=== PATIENT | male | born 1975 | race Caucasian/White ===

== ENCOUNTER 2024-12-12 21:03 | Emergency (ER) | payer SELFPAY ==
[~2024-12-12] VITALS: Ht 182.9 cm; Wt 90.9 kg
[~2024-12-12 21:03] MED LIST: IBUP-1984 PO; SYN0.0125T PO
--- NOTE | 2024-12-12 21:23 | ELECTROCARDIOGRAPH REPORT ---
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 Rocio Noriega Measurements Intervals [place] Rate: 80 P: 66 [place]: 177 QRS: 45 QRSD: 97 T: 38 QT: 397 QTc: 458 Interpretive Statements Sinus rhythm Electronically Signed On 12-12-2024 23:33:[address] Rocio Noriega Please click the below link to view image of tracing.
[2024-12-12 21:45] LABS: MEAN PLATELET VOLUME 6.2 FL (7.4-10.4); RED CELL DISTRIBUTION WIDTH 13.8 % (11.5-14.5)
--- NOTE | 2024-12-12 21:50 | RADIOLOGY REPORT ---
CHEST RADIOGRAPH Indication: CP Technique: Single frontal view of the chest was obtained Comparison: None FINDINGS: Lines and Tubes: None Lungs: No focal consolidation. Pleura: No effusion or pneumothorax. Cardiomediastinal contours: Normal size. Small density overlying the right inferior heart. Bones: No acute osseous abnormality. IMPRESSION: 1. No acute cardiopulmonary abnormality.
[2024-12-12 22:05] LABS: CREATININE 0.97 MG/DL (0.60-1.10); PRO BRAIN NATRIURETIC PEPTIDE < 30 PG/ML (0-125); TOTAL CARBON DIOXIDE 22.6 MMOL/L (24-32); eCRCL 103 ML/MIN; eGFR 83 ML/MIN
--- NOTE | 2024-12-12 22:13 | Physician Documentation ---
History of Present Illness ~ Chief Complaint: Shortness of Breath Stated Complaint: SOB Time Seen by MD: 21:29 OK to notify your PCP?: Yes Primary Medical Doctor: Emigdio Source: patient, RN/, RN notes reviewed, old records Mode of Arrival: POV Exam Limitations: no limitations HPI 49 year old male with history of asthma and hashimotos seen in bed 01 presents to the emergency department for complaints of asthma. 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 He states he took an allergy treatment and found out he was allergic to trees and grass and is in the process of finding a new job. He states he has been treating his asthma with Zyrtec, Netie pot treatments and inhalers. He states that tonight while walking out of a movie he felt a sudden asthma exacerbation while waking to his car from a movie, he used his inhaler to no avail and states he felt like he was going to . He made it to his sisters house where he took a nebulizer treatment and decided to come in today. Of note he also complains of an infection to an upper tooth. Medication Reconciliation Allergies: Coded Allergies: No Known Allergies (Unverified , 10/12/12) Scheduled Amox Tr/Potassium Clavulanate (Augmentin 875-125 Tablet), 1 TAB PO Q12H Levothyroxine Sodium* (Synthroid*), 137 MCG PO DAILY, (Reported) Prednisone* (Prednisone*), 2 TAB PO DAILY Scheduled PRN Ibuprofen* (Motrin*), 1-2 TAB PO Q8H PRN Past Medical History Past Medical History: Asthma, Thyroid (unspecified) Past Surgical History: no surgical history Alcohol Use: Rarely Drug Use: none Review of Systems All Other Systems at this time: Reviewed and Negative ROS As stated above in the HPI, otherwise all systems are reviewed and negative. Physical Exam Vital Signs: RN Vital Signs have been reviewed: Yes, Temperature: 97.7, Source: Temporal, Heart Rate: 82, Respiratory Rate: 20, BP: 119/83, Pulse Oximetry: 94, Weight: 90.900 Oxygen Flow Rate: 0 Pulse Oximetry Reflects: adequate oxygenation Physical Exam General: The patient is well developed, well nourished, nontoxic appearing and is in no acute distress. Skin: [place], warm and dry with no rashes. HEENT: Top left pre molar evie with soft tissue swelling to left upper cheek. Head was normocephalic and atraumatic. Eyes - pupils equal, round, reactive to light and accommodation. Extraocular movements were intact. Conjunctivae were nonicteric. Ears - bilateral tympanic membranes were normal. The mouth and oropharynx were clear with moist mucous membranes. There were no pharyngeal exudates or erythema. Neck: Supple and nontender. There was no jugular venous distention, lymphadenopathy, thyromegaly or masses. Chest: Short and shallow breath sounds with expiatory wheezing. No accessory muscle use. No dullness to percussion. Heart: Rate regular and rhythmic. S1, S2. No murmurs. Palpation of the chest wall was normal. No rubs or thrills. Abdomen: Soft, nontender and nondistended. Positive bowel sounds. No guarding or rebound. No hepatosplenomegaly or palpable masses. Extremities: No cyanosis, clubbing or edema. The patient moves all extremities. Pulses were equal and symmetric. Neurologic: Cranial nerves II-XII were intact. Sensation was intact to light touch throughout. Motor strength was 5/5 in all four extremities. Deep tendon reflexes were intact in both upper and lower extremities. Psychologic: The patient was oriented to person, place and time. The patient demonstrated appropriate judgement and insight. Progress Results/Orders Results/Orders Orders - OSMANY NORIEGA MD Chest,Single View (12/12/24 21:21) Monitor (12/12/24 21:21) Saline Lock (12/12/24 21:21) Oxygen (12/12/24 21:21) Electrocardiogram (12/12/24 21:21) Heliox Svn Treatment (12/12/24 ) Svn Treatment (12/12/24 23:00) Peak Flow (12/12/24 23:10) Svn Treatment (12/12/24 23:10) Completed Orders - OSMANY NORIEGA MD Chest,Single View (12/12/24 21:21) Cbc/Diff (12/12/24 21:21) BMP (12/12/24 21:21) PBNP (12/12/24 21:21) Electrocardiogram (12/12/24 21:21) Hs Troponin I W Calculations (12/12/24 21:21) Methylprednisolone Sod Succ (Solumedrol (12/12/24 22:30) Ipratropium/Albuterol Nebule (Ipratrop/A (12/12/24 22:30) Amox Tr/Potassium Clavulanate (Augmentin (12/12/24 23:00) Ipratropium/Albuterol Nebule (Ipratrop/A (12/12/24 23:00) Albuterol 2.5mg/3ml Nebule (Proventil 2. (12/12/24 23:10) Medications Received in ER Medications (Trade) Dose Ordered Sig/Guicho Route PRN Reason Start Time Stop Time Status Last Admin Dose Admin (SoluMEDROL 125mg inj) 125 mg ONCE ONCE IV 12/12/24 22:30 12/12/24 22:31 DC 12/12/24 22:40 125 MG (ipratrop/ albuterol 0.5-3(2.5) MG/3ml nebule) 3 ml ONCE ONCE NEB 12/12/24 22:30 12/12/24 22:31 DC 12/12/24 22:30 3 ML (Augmentin 875-125mg tablet) 1 tab ONCE ONCE PO 12/12/24 23:00 12/12/24 23:01 DC 12/12/24 23:18 1 TAB (Proventil 2.5 MG/3ML nebule) 2.5 mg ONCE ONCE NEB 12/12/24 23:10 12/12/24 23:13 DC 12/12/24 23:42 2.5 MG Vital Signs 12/12/24 12/12/24 12/12/24 12/12/24 21:09 21:41 21:46 22:54 Temp 97.7 Pulse 82 82 70 Resp 20 20 18 B/P (MAP) 137/84 119/83 (95) Pulse Ox 94 94 97 O2 Delivery Room Air* O2 Flow Rate 0 0 8 FiO2 N/A 12/12/24 12/12/24 23:01 23:43 Temp 98.2 Pulse 72 72 Resp 18 20 B/P (MAP) 121/80 Pulse Ox 95 94 O2 Flow Rate 0 FiO2 N/A Laboratory Tests Test 12/12/24 21:37 White Blood Count 8.5 Red Blood Count 4.88 Hemoglobin 15.4 Hematocrit 43.7 Mean Corpuscular Volume 89.7 Mean Corpuscular Hemoglobin 31.6 H Mean Corpuscular Hemoglobin Concent 35.2 Red Cell Distribution Width 13.8 Platelet Count 288 Mean Platelet Volume 6.2 L Neutrophils (%) (Auto) 49.3 Lymphocytes (%) (Auto) 26.5 Monocytes (%) (Auto) 7.0 Eosinophils (%) (Auto) 16.8 H Basophils (%) (Auto) 0.4 Neutrophils # (Auto) 4.2 Lymphocytes # (Auto) 2.2 Monocytes # (Auto) 0.6 Eosinophils # (Auto) 1.4 H Basophils # (Auto) 0.0 CBC Comment Sodium Level 138 Potassium Level 3.5 Chloride Level 105 Carbon Dioxide Level 22.6 L Anion Gap 10 Blood Urea Nitrogen 27 H Creatinine 0.97 Estimated GFR/1.73 m2 83 BUN/Creatinine Ratio 27.8 H Glucose Level 108 H Calcium Level 9.0 Troponin I High Sensitivity 5 Pro-B-Type Natriuretic Peptide < 30 Albumin 3.9 Chemistry Comments Re-Evaluation Re-evaluation : Bronchodilator Tx Response: mild relief, moderate relief Re-Evaluation: Improved Progress Patient was seen and examined. Patient was given reassurance. Patient was having difficulty breathing. Patient has been having recurrent episodes of asthma exacerbation. 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 Patient received Heliox treatments x2 steroids. At time of discharge he was given antibiotics for his dental pain as well as steroids. Patient received a spacer as well as a peak flow monitor so he can evaluate his tidal volume. Laboratory work was reassuring. CBC was within normal limits without leukocytosis or left shift. Patient's chemistry showed some slight acidosis with a CO2 of 22.6. Patient's glucose slightly elevated 108 troponin negative. Patient received his treatment s chest x-ray was reassuring patient was then discharged home. On a separate note patient also had dental caries was started on antibiotics he has some slight soft tissue swelling to the left cheek. Continuous cardiac nurse practitioner interpretation shows normal sinus rhythm heart rate 80s, no ectopy, normal, my interpretation. Pulse oximetry monitor interpretation shows normal oxygenation at 97% room air, normal, my interpretation. At presentation was 94% a bit low for this patient. 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 Osmany Noriega Measurements Intervals [place] Rate: 80 P: 66 [place]: 177 QRS: 45 QRSD: 97 T: 38 QT: 397 QTc: 458 Interpretive Statements Sinus rhythm Electronically Signed On 12-12-2024 23:33:[address] Osmany Noriega Please click the below link to view image of tracing. EKG Date and Time:12/12/242107 Electronically Signed by: OSMANY NORIEGA MD Date and Time: 12/12/24 233 Chest X-Ray : Additional Comments CHEST RADIOGRAPH Indication: CP Technique: Single frontal view of the chest was obtained Comparison: None FINDINGS: Lines and Tubes: None Lungs: No focal consolidation. Pleura: No effusion or pneumothorax. Cardiomediastinal contours: Normal size. Small density overlying the right inferior heart. Bones: No acute osseous abnormality. IMPRESSION: 1. No acute cardiopulmonary abnormality. Electronically Signed by:DYLAN LEA MD Date & Time: 12/12/242146 Medical Decision Making Additional info obtained from: old records Differential Dx:Considerations: Include: anxiety, asthma, bronchitis, pneumonia, pneumonitis, sinusitis, upper resp. infection, other Departure Time of Disposition: 23:13 Disposition: 01 HOME / SELF CARE / HOMELESS Impression: Primary Impression: Asthma exacerbation Qualified Codes: J45.41 - Moderate persistent asthma with (acute) exacerbation Additional Impressions: Pain, dental Dental caries Condition: Stable Discharge Instructions: Asthma, Adult, [id number] Referrals: NO PRIMARY CARE PROVIDER (PCP) Prescriptions Prednisone* (Prednisone*) 20 Mg Tablet 2 TAB PO DAILY, #20 TAB Prov: OSMANY NORIEGA MD 12/12/24 Amox Tr/Potassium Clavulanate (Augmentin 875-125 Tablet) 1 Each Tablet 1 TAB PO Q12H for 14 Days, #28 TAB Prov: OSMANY NORIEGA MD 12/12/24 Education Educated: Patient Educated regarding: diagnosis, treatment, prognosis, need for follow up Signature Scribe Signature: Scribed for Osmany Noriega MD by Juliana Valladares . 12/12/24 22:34 Attestation: The note accurately reflects work and decisions made by me.Osmany Noriega MD 12/12/24 22:13 OSMANY NORIEGA MD Dec 12, 2024 22:13 JULIANA WILKINS Dec 12, 2024 22:37
[2024-12-12] MEDS: ipratropium/albuterol 3ml nebule NEB ONE ×2 (22:30→23:42)
[2024-12-12 22:54] VITALS: PULSE 70; RESP 18; O2SAT 97
[2024-12-12 23:01] VITALS: PULSE 72; RESP 18; O2SAT 95
[2024-12-12] MEDS ORDERED: PRED20TA PO (23:10)
[2024-12-12] MEDS ORDERED: AMOX-117 PO (23:10)
[2024-12-12] MEDS: amox tr/potassium clavulanate 875/125mg TAB PO ONE (23:18)
[2024-12-12] MEDS: albuterol 2.5 MG/3 ML nebule NEB ONE (23:42)
[2024-12-12 23:43] VITALS: BP 121/80; PULSE 72; RESP 20; TEMP 98.2; O2SAT 94
== END 2024-12-12 23:49 | disposition home or self-care (01) ==
LOC: ER 21:03
DX: J45.901 Unspecified asthma with (acute) exacerbation (principal); K02.9 Dental caries, unspecified; E06.3 Autoimmune thyroiditis
CPT/HCPCS: 36415; 71045; 80048; 83880; 84484; 85025; 93005; 94010; 94640; 96374; 99285; J2919